=== PATIENT | female | born 2000 | race Caucasian/White ===

== ENCOUNTER → 2018-10-28 | Outpatient (REF) | payer OTHER ==
[2018-10-28 23:34] LABS: CHLAMYDIA DNA AMPLIFICATION NEGATIVE (NEGATIVE); GC DNA AMPLIFICATION NEGATIVE (NEGATIVE)
== END ==
LOC: M SFHCLERA 16:33
PROVIDERS: ATTEND Nurse Practitioner Family
DX: R35.0 Frequency of micturition (principal)
CPT/HCPCS: 81002; 81025; 87070; 87077; 87086; 87661; G0463

== ENCOUNTER → 2019-01-07 | Outpatient (REF) | payer OTHER ==
[2019-01-08 00:41] LABS: CHLAMYDIA DNA AMPLIFICATION NEGATIVE (NEGATIVE); GC DNA AMPLIFICATION NEGATIVE (NEGATIVE)
== END ==
LOC: M SFHCLERA 11:06
PROVIDERS: ATTEND Nurse Practitioner Family
DX: N92.6 Irregular menstruation, unspecified (principal)
CPT/HCPCS: 87086; 87661; G0463

== ENCOUNTER → 2019-09-17 | Outpatient (REF) | payer OTHER ==
[2019-09-17 18:44] LABS: HEMOGLOBIN 13.3 g/dl (12.0-15.5); MEAN CORPUSCULAR HEMOGLOBIN 31.1 pg (27.0-33.0); MEAN CORPUSCULAR VOLUME 88.8 fl (80.0-96.0); PLATELET COUNT, AUTOMATED 309 10^3/uL (150-450); RED BLOOD COUNT 4.28 10^6/uL (4.00-5.40); WHITE BLOOD COUNT 8.8 10^3/uL (4.0-10.0)
[2019-09-17 21:01] LABS: CHLAMYDIA DNA AMPLIFICATION NEGATIVE (NEGATIVE); GC DNA AMPLIFICATION NEGATIVE (NEGATIVE)
[2019-09-18 17:34] LABS: HEPATITIS C VIRUS ABY INDEX 0.2 INDEX (<0.8); HIV 1&2 SCREEN CENTAUR NEGATIVE (NEGATIVE)
== END ==
LOC: M PLALAB 15:28
PROVIDERS: ATTEND Advanced Practice Midwife
DX: Z34.01 Encounter for supervision of normal first pregnancy, first trimester (principal)
CPT/HCPCS: 36415; 85027; 86762; 86780; 86803; 86850; 86900; 86901; 87086; 87340; 87389; 87491; 87591; G0463

== ENCOUNTER → 2019-12-02 | Outpatient (CLI) | payer OTHER ==
--- NOTE | 2019-12-29 13:59 | REP ---
COMPLETE OBSTETRICAL ULTRASOUND CLINICAL: Anatomical evaluation. COMPARISON: None. TECHNIQUE: Transabdominal obstetrical ultrasound with color Doppler evaluation. FINDINGS: Ultrasound examination demonstrates a single live intrauterine in transverse lie. motion was identified by the technologist. Placenta noted posteriorly and grade 0 without placenta previa or abruption. Amniotic fluid volume is normal. Cervix measures 3.0 cm in length and appears closed. heart rate equals 146 beats per minute. MEASUREMENTS: BPD 43 MM 19 weeks 1 day HC 159 mm 18 weeks 6 days AC 126 mm 18 weeks 2 days FL 27 mm 18 weeks 4 days HL 26 mm 18 weeks 3 days Estimated age by current measurements 18 weeks 5 days. Estimated weight 240 grams (55th percentile). Anatomic assessment demonstrates normal cisterna magna, cavum, thalamus, spine, stomach, kidneys and bladder, four chamber heart, three-vessel cord, cord insertion, facial features, and extremities. Limited evaluation of the cardiac ventricular outflow tracts noted. IMPRESSION: Single live intrauterine in transverse lie demonstrating appropriate estimated weight. Limited evaluation of the cardiac ventricular outflow tract warrants reevaluation. The remainder of the anatomical assessment is complete and normal. MTDD
== END ==
LOC: M WHC 12:39
PROVIDERS: ATTEND Advanced Practice Midwife
DX: Z36.89 Encounter for other specified antenatal screening (principal); Z3A.18 18 weeks gestation of pregnancy

== ENCOUNTER → 2019-12-11 | Outpatient (CLI) | payer OTHER ==
--- NOTE | 2019-12-31 11:42 | REP ---
FOLLOW-UP OBSTETRICAL ULTRASOUND COMPARISON: 12/02/2019. TECHNIQUE: Transabdominal obstetrical ultrasound with color Doppler evaluation. FINDINGS: Ultrasound examination demonstrates single live intrauterine in breech presentation. motion was identified by the technologist. Placenta is noted posteriorly and grade 1 without evidence for placenta previa or abruption. Amniotic fluid volume is normal. Cervix measures 3.1 cm in length and appears closed. Gestational age by last menstrual period (LMP) 19 weeks 4 days with estimated date of delivery 05/02/2020. heart rate 139 beats per minute. Anatomical assessment demonstrates normal choroid plexus, cerebellum/posterior fossa, facial features, right cardiac ventricular outflow tract, diaphragm, stomach, kidneys, bladder, spine, three-vessel cord/cord insertion, and lower extremities. IMPRESSION: Single live intrauterine in breech presentation demonstrating limited, but normal anatomical assessment as above. In conjunction with prior examination, anatomical assessment is complete and normal. No gross abnormalities are identified. MTDD
== END ==
LOC: M WHC 10:19
PROVIDERS: ATTEND Advanced Practice Midwife
DX: O32.1XX0 Maternal care for breech presentation, not applicable or unspecified (principal); Z3A.19 19 weeks gestation of pregnancy

== ENCOUNTER → 2020-01-27 | Outpatient (REF) | payer OTHER ==
[2020-01-27 13:44] LABS: HEMATOCRIT 38.9 % (36.0-47.0); HEMOGLOBIN 13.2 g/dl (12.0-15.5); MEAN CORPUSCULAR HEMOGLOBIN 31.4 pg (27.0-33.0); MEAN CORPUSCULAR HGB CONC 33.9 g/dl (32.0-36.5); MEAN CORPUSCULAR VOLUME 92.4 fl (80.0-96.0); PLATELET COUNT, AUTOMATED 305 10^3/uL (150-450); RED BLOOD COUNT 4.21 10^6/uL (4.00-5.40); WHITE BLOOD COUNT 9.1 10^3/uL (4.0-10.0)
== END ==
LOC: M PLALAB 10:11
PROVIDERS: ATTEND Advanced Practice Midwife
DX: Z34.02 Encounter for supervision of normal first pregnancy, second trimester (principal); Z36.89 Encounter for other specified antenatal screening

== ENCOUNTER → 2021-02-02 | Outpatient (REF) | payer OTHER ==
[2021-02-02 20:37] LABS: GC DNA AMPLIFICATION NEGATIVE (NEGATIVE)
== END ==
LOC: M LAB REF 15:56
PROVIDERS: ATTEND Physician Assistant
DX: N76.0 Acute vaginitis (principal)